=== PATIENT | male | born 1980 | race Two or more races ===

== ENCOUNTER 2016-04-02 16:37 | Inpatient (IN) | payer MEDICAID ==
[~2016-04-02] VITALS: Ht 175.3 cm; Wt 71.1 kg
[~2016-04-02 16:37] MED LIST: COLC0.6T56 GT; FERR18TA2 PEG; GABA-494 PO; IBUP800T24 PEG; METO25TA5 PEG; PANT40TA2 PEG; POLY335015 PEG
[2016-04-02] MEDS ORDERED: SODIUM CHLORIDE 0.9% 1,000 ML IVB ONE (17:47)
[2016-04-02] MEDS ORDERED: cefTRIAXone 1GM/50ML D5W 50 ML IV ONE (18:00)
[2016-04-02 18:08] LABS: Basophils # (auto) 0 uL; Basophils % (auto) 0.2 % (0.0-2.0); DEFINITIVE VIEW TRANSMISSION; Eosinophils # (auto) 0 uL; Hematocrit 39.1 % (41.0-53.0); Hemoglobin 12.1 g/dL (13.5-17.5); Lymphocytes # (auto) 1.8 uL; Lymphocytes % (auto) 17.5 % (10.0-50.0); Mean Corpuscular Hgb Conc. 31.1 g/dL (32.0-36.0); Mean Corpuscular Volume 80.3 fL (80.0-100.0); Mean Platelet Volume 8.8 fL (7.4-10.4); Monocytes # (auto) 0.7 uL; Monocytes % (auto) 6.8 % (0.0-12.0); Neutrophils # (auto) 7.7 uL; Neutrophils % (auto) 75.5 % (37.0-80.0); Platelet Count (auto) 219 10^3/uL (140-450); Red Cell Distribution Width 16.6 % (11.6-16.0); White Blood Cell 10.2 10^3/uL (4.4-10.8)
[2016-04-02 18:19] LABS: Albumin 2.8 g/dL (3.4-5.0); BUN/Creatinine Ratio 20.5; Calcium 8.4 mg/dL (8.5-10.1); Magnesium 2.1 mg/dL (1.6-2.6); Potassium 3.5 mmol/L (3.5-5.1)
[2016-04-02 18:21] LABS: Total Protein 7.9 g/dL (6.4-8.2)
[2016-04-02 18:22] LABS: Partial Thromboplastin Time 31.6 sec (22.64-33.71)
[2016-04-02 18:25] LABS: INR 1.3 (0.9-1.15); Prothrombin Time 13.4 sec (9.37-12.3)
[2016-04-02] MEDS ORDERED: AZITHROMYCIN 500MG/D5W 250ML 250 ML IV ONE (20:15)
[2016-04-02 21:16] LABS: Urine Bilirubin Negative (Negative); Urine Blood Negative /uL (Negative); Urine Color Yellow (Yellow); Urine Glucose Normal (Normal); Urine Ketone TRACE (Negative); Urine Mucus FEW (None Seen); Urine RBC 4 /hpf (0 - 3); Urine Squamous Epithelial Cell FEW /hpf (<5); Urine Urobilinogen Normal (Negative); Urine pH 6.5 (5.0-8.0)
[2016-04-02 21:26] LABS: Urine Nitrite POSITIVE (Negative)
[2016-04-02] MEDS ORDERED: SODIUM CHLORIDE 0.9% 1,000 ML IV ONE ×2 (22:45→23:00)
[2016-04-02] MEDS ORDERED: ALPRAZolam 0.5 MG TAB PO ONE (22:45)
[2016-04-02] MEDS ORDERED: SODIUM CHLORIDE 0.9% 1,000 ML IV SCH (22:47)
[2016-04-02] MEDS ORDERED: LACTULOSE 20Gm/30ML SOLN PO PRN (23:00)
[2016-04-02 23:34] VITALS: BP 104/69
[2016-04-03] VITALS (12 sets, daily range): BP systolic 67–106; BP diastolic 36–68
[2016-04-03] MEDS: SODIUM CHLORIDE 0.9% 1,000 ML IV ONE ×2 (01:47→01:53)
[2016-04-03] MEDS: ALBUTEROL SULF 2.5 MG/0.5ML(0.5%) NEB SOLN NEB SCH ×6 (02:15→22:47)
[2016-04-03] MEDS: IPRATROPIUM BROM 0.5 MG/2.5ML INH SOL NEB SCH ×6 (02:15→22:47)
[2016-04-03] MEDS ORDERED: CHL4PW GT (03:19)
[2016-04-03] MEDS ORDERED: FERR220E2 PO (03:19)
[2016-04-03] MEDS ORDERED: ALBUMIN 5% 250 ML IV ONE ×5 (04:27→07:45)
[2016-04-03 06:36] LABS: Basophils # (auto) 0 uL; Basophils % (auto) 0.2 % (0.0-2.0); DEFINITIVE VIEW TRANSMISSION; Eosinophils # (auto) 0 uL; Eosinophils % (auto) 0.1 % (0.0-7.0); Hematocrit 31.2 % (41.0-53.0); Hemoglobin 9.8 g/dL (13.5-17.5); Lymphocytes # (auto) 0.8 uL; Lymphocytes % (auto) 16.3 % (10.0-50.0); Mean Corpuscular Hemoglobin 25.7 pg (28.0-32.0); Mean Corpuscular Hgb Conc. 31.5 g/dL (32.0-36.0); Mean Corpuscular Volume 81.6 fL (80.0-100.0); Mean Platelet Volume 8.2 fL (7.4-10.4); Monocytes # (auto) 0.4 uL; Monocytes % (auto) 7.2 % (0.0-12.0); Neutrophils # (auto) 3.9 uL; Neutrophils % (auto) 76.2 % (37.0-80.0); Platelet Count (auto) 148 10^3/uL (140-450); Red Cell Distribution Width 16.7 % (11.6-16.0); White Blood Cell 5.1 10^3/uL (4.4-10.8)
[2016-04-03 06:56] LABS: Albumin 2.9 g/dL (3.4-5.0); BUN/Creatinine Ratio 26.1; Bilirubin, Total 0.5 mg/dL (0.2-1.0); Potassium 3.2 mmol/L (3.5-5.1); Total Protein 6.7 g/dL (6.4-8.2)
[2016-04-03] MEDS: SODIUM CHLORIDE 0.9% 1,000 ML IV SCH ×3 (07:45→21:25)
[2016-04-03] MEDS ORDERED: IOHEXOL 350 MG/ML 100ML IJ ONE (08:20)
[2016-04-03] MEDS: FERROUS SULFATE 325 MG TAB PO SCH ×3 (08:23→17:04)
[2016-04-03] MEDS ORDERED: ENOXAPARIN SOD 30 MG/0.3 ML SYRINGE SC SCH (10:00)
[2016-04-03] MEDS: ENOXAPARIN SOD 40 MG/0.4 ML SYRINGE SC SCH (10:00)
[2016-04-03] MEDS: PANTOPRAZOLE SODIUM 40 MG/10 ML VIAL IV SCH (10:10)
[2016-04-03] MEDS: CHOLESTYRAMINE 4 GM POWDER PO SCH (11:00)
[2016-04-03] MEDS: PIPERACILLIN-TAZO 4.5GM 100 ML IV SCH (16:59)
[2016-04-03] MEDS: PRO-STAT 64 30ML PO SCH (18:00)
[2016-04-03] MEDS: BUDESONIDE (INHALATION) 0.5 MG/2 ML NEB NEB SCH (20:24)
[2016-04-03] MEDS ORDERED: cefTRIAXone 1GM/50ML D5W 50 ML IV SCH (21:00)
[2016-04-03] MEDS: AZITHROMYCIN 500MG/D5W 250ML 250 ML IV SCH (21:23)
[2016-04-03] MEDS: NUTREN GT SCH (22:49)
[2016-04-03] MEDS ORDERED: TEMAZEPAM 15 MG CAP PO ONE (23:45)
[2016-04-04] MEDS: ALBUTEROL SULF 2.5 MG/0.5ML(0.5%) NEB SOLN NEB SCH ×6 (01:54→22:18)
[2016-04-04] MEDS: IPRATROPIUM BROM 0.5 MG/2.5ML INH SOL NEB SCH ×6 (01:54→22:18)
[2016-04-04] MEDS: PIPERACILLIN-TAZO 4.5GM 100 ML IV SCH ×3 (02:06→17:36)
[2016-04-04 05:00] VITALS: BP 85/44
[2016-04-04] MEDS: SODIUM CHLORIDE 0.9% 1,000 ML IV SCH ×3 (06:00→17:12)
[2016-04-04 06:28] LABS: Basophils # (auto) 0 uL; Basophils % (auto) 0.3 % (0.0-2.0); DEFINITIVE VIEW TRANSMISSION; Eosinophils # (auto) 0 uL; Eosinophils % (auto) 0.2 % (0.0-7.0); Hematocrit 31.6 % (41.0-53.0); Hemoglobin 9.9 g/dL (13.5-17.5); Lymphocytes # (auto) 1.3 uL; Mean Corpuscular Hemoglobin 25.3 pg (28.0-32.0); Mean Corpuscular Hgb Conc. 31.4 g/dL (32.0-36.0); Mean Corpuscular Volume 80.6 fL (80.0-100.0); Mean Platelet Volume 9.1 fL (7.4-10.4); Monocytes # (auto) 0.4 uL; Monocytes % (auto) 9.5 % (0.0-12.0); Neutrophils # (auto) 2.7 uL; Platelet Count (auto) 163 10^3/uL (140-450); Red Cell Distribution Width 15.7 % (11.6-16.0); White Blood Cell 4.5 10^3/uL (4.4-10.8)
[2016-04-04 06:40] LABS: Albumin 2.9 g/dL (3.4-5.0); BUN/Creatinine Ratio 7.4; Calcium 8.2 mg/dL (8.5-10.1)
[2016-04-04 06:42] LABS: Bilirubin, Total 0.5 mg/dL (0.2-1.0); Total Protein 6.6 g/dL (6.4-8.2)
[2016-04-04 06:49] LABS: Potassium 2.9 mmol/L (3.5-5.1)
[2016-04-04] MEDS ORDERED: POTASSIUM CHL 10% (20 MEQ/15ML) ORAL SOLN GT ONE (07:30)
[2016-04-04 08:00] VITALS: BP 91/61
[2016-04-04] MEDS: BUDESONIDE (INHALATION) 0.5 MG/2 ML NEB NEB SCH ×2 (09:32→18:31)
[2016-04-04] MEDS: PRO-STAT 64 30ML PO SCH ×3 (09:49→17:48)
[2016-04-04] MEDS: FERROUS SULFATE 325 MG TAB PO SCH ×3 (09:49→17:48)
[2016-04-04] MEDS: NUTREN GT SCH (10:07)
[2016-04-04] MEDS: ENOXAPARIN SOD 40 MG/0.4 ML SYRINGE SC SCH (10:48)
[2016-04-04] MEDS: PANTOPRAZOLE SODIUM 40 MG/10 ML VIAL IV SCH (10:48)
[2016-04-04 12:00] VITALS: BP 74/42
[2016-04-04] MEDS: CHOLESTYRAMINE 4 GM POWDER PO SCH (13:08)
[2016-04-04] MEDS: NUTREN PO SCH ×3 (16:00→22:00)
[2016-04-04 17:06] VITALS: BP 70/42
[2016-04-04 19:30] VITALS: BP 84/49
[2016-04-04] MEDS: AZITHROMYCIN 500MG/D5W 250ML 250 ML IV SCH (20:35)
[2016-04-04 22:00] VITALS: BP 83/49
[2016-04-04] MEDS ORDERED: TEMAZEPAM 15 MG CAP PO ONE (22:00)
[2016-04-05] VITALS (7 sets, daily range): BP systolic 73–118; BP diastolic 40–80
[2016-04-05] MEDS: SODIUM CHLORIDE 0.9% 1,000 ML IV SCH ×4 (00:27→19:45)
[2016-04-05] MEDS: PIPERACILLIN-TAZO 4.5GM 100 ML IV SCH ×3 (00:27→18:11)
[2016-04-05] MEDS: IPRATROPIUM BROM 0.5 MG/2.5ML INH SOL NEB SCH ×6 (02:51→22:00)
[2016-04-05] MEDS: ALBUTEROL SULF 2.5 MG/0.5ML(0.5%) NEB SOLN NEB SCH ×6 (02:51→22:00)
[2016-04-05] MEDS: NUTREN PO SCH ×4 (05:51→22:00)
[2016-04-05 06:31] LABS: Calcium 8.3 mg/dL (8.5-10.1); Potassium 3.6 mmol/L (3.5-5.1)
[2016-04-05] MEDS: PRO-STAT 64 30ML PO SCH ×3 (08:00→18:12)
[2016-04-05] MEDS: FERROUS SULFATE 325 MG TAB PO SCH ×3 (09:22→18:11)
[2016-04-05] MEDS: ENOXAPARIN SOD 40 MG/0.4 ML SYRINGE SC SCH (09:49)
[2016-04-05] MEDS: PANTOPRAZOLE SODIUM 40 MG/10 ML VIAL IV SCH (09:50)
[2016-04-05] MEDS ORDERED: LINEZOLID 600MG/300ML 300 ML IV SCH (10:00)
[2016-04-05] MEDS: BUDESONIDE (INHALATION) 0.5 MG/2 ML NEB NEB SCH ×2 (12:08→18:44)
[2016-04-05] MEDS: CHOLESTYRAMINE 4 GM POWDER PO SCH (13:50)
[2016-04-05] MEDS ORDERED: HYDROmorphone HCL 2 MG/ML VL ONE (14:11)
[2016-04-05] MEDS ORDERED: GASTROGRAFIN 30 ML SOL ONE (14:23)
[2016-04-05] MEDS ORDERED: HYDROmorphone HCL 2 MG/ML VL IV ONE (14:30)
[2016-04-05] MEDS: LINEZOLID 600MG/300ML 300 ML IV SCH (23:19)
[2016-04-06] VITALS (7 sets, daily range): BP systolic 77–93; BP diastolic 48–64
[2016-04-06] MEDS: SODIUM CHLORIDE 0.9% 1,000 ML IV SCH ×4 (02:25→22:25)
[2016-04-06] MEDS: IPRATROPIUM BROM 0.5 MG/2.5ML INH SOL NEB SCH ×5 (02:35→18:20)
[2016-04-06] MEDS: ALBUTEROL SULF 2.5 MG/0.5ML(0.5%) NEB SOLN NEB SCH ×5 (02:35→18:20)
[2016-04-06] MEDS: BUDESONIDE (INHALATION) 0.5 MG/2 ML NEB NEB SCH ×2 (02:50→11:23)
[2016-04-06] MEDS: PIPERACILLIN-TAZO 4.5GM 100 ML IV SCH ×3 (04:58→20:46)
[2016-04-06] MEDS: NUTREN PO SCH ×4 (06:00→22:00)
[2016-04-06] MEDS: PRO-STAT 64 30ML PO SCH ×3 (08:58→18:31)
[2016-04-06] MEDS: FERROUS SULFATE 325 MG TAB PO SCH ×3 (08:58→18:41)
[2016-04-06] MEDS: PANTOPRAZOLE SODIUM 40 MG/10 ML VIAL IV SCH (10:04)
[2016-04-06] MEDS: ENOXAPARIN SOD 40 MG/0.4 ML SYRINGE SC SCH (10:04)
[2016-04-06] MEDS: CHOLESTYRAMINE 4 GM POWDER PO SCH (11:20)
[2016-04-06] MEDS: LINEZOLID 600MG/300ML 300 ML IV SCH (12:04)
[2016-04-06] MEDS: ALPRAZolam 0.25 MG TAB PO PRN (18:41)
[2016-04-06] MEDS: ASCORBIC ACID 500 MG TAB PO SCH (21:30)
[2016-04-07] MEDS: LINEZOLID 600MG/300ML 300 ML IV SCH ×3 (00:47→23:40)
[2016-04-07] MEDS: ALPRAZolam 0.25 MG TAB PO PRN ×3 (02:44→22:42)
[2016-04-07] MEDS: ALBUTEROL SULF 2.5 MG/0.5ML(0.5%) NEB SOLN NEB SCH ×6 (02:50→22:00)
[2016-04-07] MEDS: IPRATROPIUM BROM 0.5 MG/2.5ML INH SOL NEB SCH ×6 (02:50→22:00)
[2016-04-07] MEDS: PIPERACILLIN-TAZO 4.5GM 100 ML IV SCH ×3 (04:21→22:07)
[2016-04-07] MEDS: SODIUM CHLORIDE 0.9% 1,000 ML IV SCH ×3 (05:05→17:48)
[2016-04-07 05:46] VITALS: BP 109/75
[2016-04-07] MEDS: NUTREN PO SCH ×4 (06:00→22:07)
[2016-04-07] MEDS: PRO-STAT 64 30ML PO SCH ×3 (08:00→16:57)
[2016-04-07 09:00] VITALS: BP 78/48
[2016-04-07] MEDS: ASCORBIC ACID 500 MG TAB PO SCH ×2 (09:53→22:07)
[2016-04-07] MEDS: CHOLESTYRAMINE 4 GM POWDER PO SCH (09:53)
[2016-04-07] MEDS: ENOXAPARIN SOD 40 MG/0.4 ML SYRINGE SC SCH (09:53)
[2016-04-07] MEDS: MULTIPLE VITAMINS W/ MINERALS TAB PO SCH (09:53)
[2016-04-07] MEDS: PANTOPRAZOLE SODIUM 40 MG/10 ML VIAL IV SCH (09:53)
[2016-04-07] MEDS: FERROUS SULFATE 325 MG TAB PO SCH ×3 (10:00→17:39)
[2016-04-07] MEDS: BUDESONIDE (INHALATION) 0.5 MG/2 ML NEB NEB SCH ×2 (11:00→22:00)
[2016-04-07 13:00] VITALS: BP 74/39
[2016-04-07 17:00] VITALS: BP 103/68
[2016-04-07] MEDS ORDERED: MIDODRINE HCL 10 MG TAB PO SCH ×2 (17:00)
[2016-04-07 22:00] VITALS: BP 144/107
[2016-04-07] MEDS ORDERED: ACETAMINOPHEN 500 MG TAB PO PRN (22:00)
[2016-04-08] MEDS: ALBUTEROL SULF 2.5 MG/0.5ML(0.5%) NEB SOLN NEB SCH ×4 (02:00→14:23)
[2016-04-08] MEDS: IPRATROPIUM BROM 0.5 MG/2.5ML INH SOL NEB SCH ×4 (02:00→14:24)
[2016-04-08] MEDS: NUTREN PO SCH ×2 (04:49→12:22)
[2016-04-08] MEDS: PIPERACILLIN-TAZO 4.5GM 100 ML IV SCH ×2 (04:49→14:00)
[2016-04-08] MEDS: SODIUM CHLORIDE 0.9% 1,000 ML IV SCH ×3 (05:00→14:25)
[2016-04-08 05:34] VITALS: BP 112/77
[2016-04-08] MEDS: BUDESONIDE (INHALATION) 0.5 MG/2 ML NEB NEB SCH (05:42)
[2016-04-08 07:01] LABS: Basophils # (auto) 0 uL; Basophils % (auto) 0.2 % (0.0-2.0); DEFINITIVE VIEW TRANSMISSION; Eosinophils # (auto) 0.1 uL; Eosinophils % (auto) 1.2 % (0.0-7.0); Hematocrit 44.6 % (41.0-53.0); Hemoglobin 13.5 g/dL (13.5-17.5); Lymphocytes # (auto) 1.9 uL; Mean Corpuscular Hgb Conc. 30.3 g/dL (32.0-36.0); Mean Corpuscular Volume 82.4 fL (80.0-100.0); Mean Platelet Volume 7.8 fL (7.4-10.4); Monocytes # (auto) 0.4 uL; Monocytes % (auto) 4.6 % (0.0-12.0); Neutrophils # (auto) 6.5 uL; Platelet Count (auto) 369 10^3/uL (140-450); Red Cell Distribution Width 16.5 % (11.6-16.0); White Blood Cell 8.9 10^3/uL (4.4-10.8)
[2016-04-08 07:37] LABS: BUN/Creatinine Ratio 15.8; Calcium 8.6 mg/dL (8.5-10.1); Potassium 3.4 mmol/L (3.5-5.1)
[2016-04-08 07:40] LABS: Bilirubin, Total 0.3 mg/dL (0.2-1.0); Total Protein 8.1 g/dL (6.4-8.2)
[2016-04-08 08:00] VITALS: BP 119/80
[2016-04-08 08:30] VITALS: BP 119/80
[2016-04-08] MEDS: ASCORBIC ACID 500 MG TAB PO SCH (09:01)
[2016-04-08] MEDS: PANTOPRAZOLE SODIUM 40 MG/10 ML VIAL IV SCH (09:01)
[2016-04-08] MEDS: PRO-STAT 64 30ML PO SCH ×2 (09:01→12:22)
[2016-04-08] MEDS: FERROUS SULFATE 325 MG TAB PO SCH ×2 (09:01→11:16)
[2016-04-08] MEDS: MULTIPLE VITAMINS W/ MINERALS TAB PO SCH (09:02)
[2016-04-08] MEDS: ENOXAPARIN SOD 40 MG/0.4 ML SYRINGE SC SCH (09:14)
[2016-04-08] MEDS ORDERED: MIDODRINE HCL 10 MG TAB PO SCH (10:00)
[2016-04-08] MEDS: CHOLESTYRAMINE 4 GM POWDER PO SCH (11:00)
[2016-04-08] MEDS: LINEZOLID 600MG/300ML 300 ML IV SCH (12:16)
[2016-04-08 13:00] VITALS: BP 103/71
== END 2016-04-08 18:06 | disposition home or self-care (01) | DRG 222 ==
LOC: ER 16:44 → TELE 16:45 → TELE-WESTW 23:38 → WEST WING 04-07 17:27
PROVIDERS: ADMIT Family Medicine; ATTEND Internal Medicine
PROC: 0DH63UZ Insertion of Feeding Device into Stomach, Percutaneous Approach (ICD-10-PCS; principal; 2016-04-05)
PROC: 0DP64UZ Removal of Feeding Device from Stomach, Percutaneous Endoscopic Approach (ICD-10-PCS; 2016-04-05)
DX: K94.23 Gastrostomy malfunction (principal); G82.50 Quadriplegia, unspecified; E43 Unspecified severe protein-calorie malnutrition; J18.9 Pneumonia, unspecified organism; E86.0 Dehydration; N39.0 Urinary tract infection, site not specified; Z74.01 Bed confinement status; Z98.890 Other specified postprocedural states; Z68.23 Body mass index [BMI] 23.0-23.9, adult
CPT/HCPCS: 36415; 51702; 71010; 71275; 74020; 80048; 80053; 80061; 81001; 83605; 83735; 85025; 85610; 85730; 87040; 87070; 87077; 87086; 87088; 87186; 87205; 94640; 94761; C9113; J0696; J2543

== ENCOUNTER 2016-05-18 16:52 | Inpatient (IN) | payer MEDICARE, MEDICAID ==
[~2016-05-18] VITALS: Ht 177.8 cm; Wt 66.0 kg
[~2016-05-18 16:52] MED LIST changes: +CHL4PW GT; -COLC0.6T56 GT; -FERR18TA2 PEG; +FERR220E2 PO; -GABA-494 PO; -IBUP800T24 PEG; -METO25TA5 PEG; -PANT40TA2 PEG
[2016-05-18] MEDS ORDERED: methylPREDNISolone SOD SUCC 125 MG/2 ML VL IV ONE (17:15)
[2016-05-18] MEDS ORDERED: SODIUM CHLORIDE 0.9% 500 ML IV ONE (17:15)
[2016-05-18] MEDS ORDERED: LEVOFLOXACIN 500MG 100 ML IV ONE (17:15)
[2016-05-18 17:57] LABS: Basophils # (auto) 0 uL; Basophils % (auto) 0.1 % (0.0-2.0); DEFINITIVE VIEW TRANSMISSION; Eosinophils # (auto) 0.2 uL; Eosinophils % (auto) 2.2 % (0.0-7.0); Hematocrit 29.9 % (41.0-53.0); Hemoglobin 9.5 g/dL (13.5-17.5); Lymphocytes # (auto) 2.7 uL; Lymphocytes % (auto) 36.8 % (10.0-50.0); Mean Corpuscular Hemoglobin 25.6 pg (28.0-32.0); Mean Corpuscular Hgb Conc. 31.7 g/dL (32.0-36.0); Mean Corpuscular Volume 80.7 fL (80.0-100.0); Mean Platelet Volume 7.8 fL (7.4-10.4); Monocytes # (auto) 0.4 uL; Monocytes % (auto) 5.8 % (0.0-12.0); Neutrophils # (auto) 4.1 uL; Neutrophils % (auto) 55.1 % (37.0-80.0); Platelet Count (auto) 260 10^3/uL (140-450); Red Cell Distribution Width 16.2 % (11.6-16.0); White Blood Cell 7.4 10^3/uL (4.4-10.8)
[2016-05-18 18:04] LABS: Albumin 2.6 g/dL (3.4-5.0); Anion Gap 9 (5-15); Aspartate Aminotransferase 12 U/L (15-37); Blood Urea Nitrogen 12 mg/dL (7-18); Calcium 7.7 mg/dL (8.5-10.1); Carbon Dioxide 25 mmol/L (21-32); Chloride 104 mmol/L (98-107); GFR African American 439 mL/min; GFR Non-African American 363 mL/min; Glucose 128 mg/dL (74-106); Magnesium 2.3 mg/dL (1.6-2.6); Potassium 3.4 mmol/L (3.5-5.1); Sodium 138 mmol/L (136-145)
[2016-05-18 18:09] LABS: Alkaline Phosphatase 84 U/L (45-117); Bilirubin, Total 0.2 mg/dL (0.2-1.0); Total Protein 7.5 g/dL (6.4-8.2)
[2016-05-18 18:12] LABS: B-Type Natriuretic Peptide 8.32 pg/mL (0-100)
[2016-05-18 18:18] LABS: Temperature: 23.5 C (20.0-25.0)
[2016-05-18] MEDS ORDERED: SODIUM CHLORIDE 0.9% 1,000 ML IV SCH (18:18)
[2016-05-18] MEDS ORDERED: LACTULOSE 20Gm/30ML SOLN PO PRN (18:30)
[2016-05-18] MEDS ORDERED: ALBUTEROL SULF 2.5 MG/0.5ML(0.5%) NEB SOLN NEB PRN (18:30)
[2016-05-18] MEDS ORDERED: LORazepam 2MG/ML-1ML VIAL IV PRN (18:30)
[2016-05-18] MEDS ORDERED: NITROGLYCERIN 0.4 MG SL TAB SL PRN (18:30)
[2016-05-18] MEDS ORDERED: PROMETHAZINE HCL 25 MG/ML 1ML IV PRN (18:30)
[2016-05-18] MEDS ORDERED: OSELTAMIVIR 75 MG CAP PO ONE (18:30)
[2016-05-18] MEDS ORDERED: MORPHINE SULF INJ 2 MG/ML SYRINGE 1ML IV PRN ×2 (18:30)
[2016-05-18] MEDS ORDERED: SODIUM CHLORIDE 0.9% 1,000 ML IV ONE (18:30)
[2016-05-18] MEDS ORDERED: PIPERACILLIN-TAZOB 3.375GM 100 ML IV ONE (18:45)
[2016-05-18] MEDS ORDERED: AZITHROMYCIN 500MG/D5W 250ML 250 ML IV ONE (18:45)
[2016-05-18] MEDS: ENOXAPARIN SOD 40 MG/0.4 ML SYRINGE SC SCH (18:52)
[2016-05-18] MEDS ORDERED: CLINDAMYCIN 600MG IV 50 ML IV SCH (22:00)
[2016-05-18] MEDS ORDERED: PATIENTS OWN MEDICATION (linezolid 600 MG) IV SCH (22:00)
[2016-05-18] MEDS ORDERED: AZTREONAM 1GM INJ 2 GM in D5W 5% 100 ML IV SCH (23:00)
[2016-05-18] MEDS: LINEZOLID 600MG/300ML 300 ML IV SCH (23:00)
[2016-05-19] VITALS (40 sets, daily range): BP systolic 67–144; BP diastolic 35–99
[2016-05-19] MEDS ORDERED: PIPERACILLIN-TAZOB 3.375GM 100 ML IV SCH
[2016-05-19 04:12] LABS: Basophils # (auto) 0 uL; Basophils % (auto) 0.1 % (0.0-2.0); DEFINITIVE VIEW TRANSMISSION; Eosinophils # (auto) 0 uL; Hematocrit 28.3 % (41.0-53.0); Hemoglobin 9.1 g/dL (13.5-17.5); Lymphocytes # (auto) 1.7 uL; Lymphocytes % (auto) 30.6 % (10.0-50.0); Mean Corpuscular Hemoglobin 26.2 pg (28.0-32.0); Mean Corpuscular Hgb Conc. 32.4 g/dL (32.0-36.0); Mean Corpuscular Volume 80.9 fL (80.0-100.0); Mean Platelet Volume 7.7 fL (7.4-10.4); Monocytes # (auto) 0.4 uL; Monocytes % (auto) 7.5 % (0.0-12.0); Neutrophils # (auto) 3.4 uL; Neutrophils % (auto) 61.8 % (37.0-80.0); Platelet Count (auto) 280 10^3/uL (140-450); Red Cell Distribution Width 16.1 % (11.6-16.0); White Blood Cell 5.6 10^3/uL (4.4-10.8)
[2016-05-19 04:37] LABS: Albumin 2.5 g/dL (3.4-5.0); BUN/Creatinine Ratio 16.7; Bilirubin, Total 0.2 mg/dL (0.2-1.0); Calcium 7.9 mg/dL (8.5-10.1); Potassium 3.5 mmol/L (3.5-5.1); Total Protein 7.2 g/dL (6.4-8.2)
[2016-05-19] MEDS: ALBUTEROL SULF 2.5 MG/0.5ML(0.5%) NEB SOLN NEB SCH ×4 (06:00→18:20)
[2016-05-19] MEDS: IPRATROPIUM BROM 0.5 MG/2.5ML INH SOL NEB SCH ×4 (06:00→18:20)
[2016-05-19] MEDS: LINEZOLID 600MG/300ML 300 ML IV SCH ×2 (09:29→22:00)
[2016-05-19] MEDS ORDERED: LEVOFLOXACIN 500MG 100 ML IV SCH (10:00)
[2016-05-19] MEDS ORDERED: AZITHROMYCIN 500MG/D5W 250ML 250 ML IV SCH (10:00)
[2016-05-19] MEDS: ENOXAPARIN SOD 40 MG/0.4 ML SYRINGE SC SCH (11:00)
[2016-05-19] MEDS: OSELTAMIVIR 75 MG CAP PO SCH ×2 (11:00→22:06)
[2016-05-19] MEDS: NUTREN PO SCH ×2 (13:14→22:06)
[2016-05-19] MEDS: AZTREONAM 1GM INJ 2 GM in D5W 5% 100 ML IV SCH ×2 (13:14→21:23)
[2016-05-19] MEDS: SODIUM CHLORIDE 0.9% 1,000 ML IV SCH ×2 (15:00→18:18)
[2016-05-19] MEDS: NOREPINEPHRINE BITARTRATE 250 ML IV SCH (18:00)
[2016-05-20] VITALS (96 sets, daily range): BP systolic 75–133; BP diastolic 36–97
[2016-05-20] MEDS: ALBUTEROL SULF 2.5 MG/0.5ML(0.5%) NEB SOLN NEB SCH ×4 (00:19→18:40)
[2016-05-20] MEDS: IPRATROPIUM BROM 0.5 MG/2.5ML INH SOL NEB SCH ×4 (00:19→18:40)
[2016-05-20] MEDS: SODIUM CHLORIDE 0.9% 1,000 ML IV SCH ×4 (00:58→17:10)
[2016-05-20 04:16] LABS: Basophils # (auto) 0 uL; Basophils % (auto) 0.3 % (0.0-2.0); DEFINITIVE VIEW TRANSMISSION; Eosinophils # (auto) 0.1 uL; Hematocrit 30.9 % (41.0-53.0); Hemoglobin 9.9 g/dL (13.5-17.5); Lymphocytes # (auto) 2.1 uL; Lymphocytes % (auto) 35.8 % (10.0-50.0); Mean Corpuscular Hemoglobin 25.7 pg (28.0-32.0); Mean Corpuscular Hgb Conc. 32.2 g/dL (32.0-36.0); Mean Corpuscular Volume 80.1 fL (80.0-100.0); Mean Platelet Volume 7.2 fL (7.4-10.4); Monocytes # (auto) 0.5 uL; Monocytes % (auto) 7.9 % (0.0-12.0); Neutrophils # (auto) 3.1 uL; Platelet Count (auto) 317 10^3/uL (140-450); Red Cell Distribution Width 16.3 % (11.6-16.0); White Blood Cell 5.7 10^3/uL (4.4-10.8)
[2016-05-20 04:45] LABS: BUN/Creatinine Ratio 10.3; Calcium 7.9 mg/dL (8.5-10.1); Potassium 3.5 mmol/L (3.5-5.1)
[2016-05-20] MEDS: AZTREONAM 1GM INJ 2 GM in D5W 5% 100 ML IV SCH ×3 (05:15→21:08)
[2016-05-20] MEDS: NUTREN PO SCH ×3 (06:00→22:00)
[2016-05-20] MEDS: ENOXAPARIN SOD 40 MG/0.4 ML SYRINGE SC SCH (10:22)
[2016-05-20] MEDS: LINEZOLID 600MG/300ML 300 ML IV SCH ×2 (10:22→22:08)
[2016-05-20] MEDS: OSELTAMIVIR 75 MG CAP PO SCH (10:22)
[2016-05-20] MEDS: NOREPINEPHRINE BITARTRATE 250 ML IV SCH (17:19)
[2016-05-21] VITALS (96 sets, daily range): BP systolic 67–172; BP diastolic 40–119
[2016-05-21] MEDS: ALBUTEROL SULF 2.5 MG/0.5ML(0.5%) NEB SOLN NEB SCH ×4 (00:18→20:00)
[2016-05-21] MEDS: IPRATROPIUM BROM 0.5 MG/2.5ML INH SOL NEB SCH ×5 (00:18→20:00)
[2016-05-21] MEDS: SODIUM CHLORIDE 0.9% 1,000 ML IV SCH ×3 (03:30→16:58)
[2016-05-21 04:14] LABS: Basophils # (auto) 0 uL; Basophils % (auto) 0.3 % (0.0-2.0); DEFINITIVE VIEW TRANSMISSION; Eosinophils # (auto) 0.2 uL; Eosinophils % (auto) 3.4 % (0.0-7.0); Hemoglobin 10.7 g/dL (13.5-17.5); Lymphocytes # (auto) 2.5 uL; Lymphocytes % (auto) 33.6 % (10.0-50.0); Mean Corpuscular Hgb Conc. 32.3 g/dL (32.0-36.0); Mean Corpuscular Volume 80.6 fL (80.0-100.0); Mean Platelet Volume 7.4 fL (7.4-10.4); Monocytes # (auto) 0.6 uL; Monocytes % (auto) 7.5 % (0.0-12.0); Neutrophils # (auto) 4.1 uL; Neutrophils % (auto) 55.2 % (37.0-80.0); Platelet Count (auto) 312 10^3/uL (140-450); Red Cell Distribution Width 16.3 % (11.6-16.0); White Blood Cell 7.4 10^3/uL (4.4-10.8)
[2016-05-21 04:21] LABS: Albumin 2.8 g/dL (3.4-5.0); Potassium 3.6 mmol/L (3.5-5.1)
[2016-05-21 04:26] LABS: Bilirubin, Total 0.1 mg/dL (0.2-1.0); Total Protein 7.8 g/dL (6.4-8.2)
[2016-05-21] MEDS: AZTREONAM 1GM INJ 2 GM in D5W 5% 100 ML IV SCH ×3 (05:13→21:06)
[2016-05-21] MEDS: NUTREN PO SCH ×3 (06:00→22:00)
[2016-05-21] MEDS: LINEZOLID 600MG/300ML 300 ML IV SCH ×2 (09:48→21:31)
[2016-05-21] MEDS: ENOXAPARIN SOD 40 MG/0.4 ML SYRINGE SC SCH (09:48)
[2016-05-21] MEDS: ACETYLCYSTEINE 20%(200MG/ML) SOL 4ML NEB SCH ×2 (13:54→20:00)
[2016-05-21] MEDS: MIDODRINE HCL 10 MG TAB PO SCH ×2 (15:04→21:32)
[2016-05-21] MEDS ORDERED: AMIODARONE HCL (50 MG/ ML) 3 ML VIAL IV ONE (17:17)
[2016-05-21] MEDS: NOREPINEPHRINE BITARTRATE 250 ML IV SCH (17:45)
[2016-05-21] MEDS: BUDESONIDE (INHALATION) 0.5 MG/2 ML NEB NEB SCH (20:00)
[2016-05-22] VITALS (96 sets, daily range): BP systolic 79–137; BP diastolic 44–91
[2016-05-22] MEDS: SODIUM CHLORIDE 0.9% 1,000 ML IV SCH ×4 (05:09→19:38)
[2016-05-22] MEDS: NUTREN PO SCH ×3 (06:00→21:27)
[2016-05-22] MEDS: IPRATROPIUM BROM 0.5 MG/2.5ML INH SOL NEB SCH ×5 (06:00→18:30)
[2016-05-22] MEDS: MIDODRINE HCL 10 MG TAB PO SCH ×3 (06:00→21:26)
[2016-05-22] MEDS: AZTREONAM 1GM INJ 2 GM in D5W 5% 100 ML IV SCH ×4 (06:58→21:25)
[2016-05-22] MEDS: ALBUTEROL SULF 2.5 MG/0.5ML(0.5%) NEB SOLN NEB SCH ×3 (07:36→18:30)
[2016-05-22] MEDS: BUDESONIDE (INHALATION) 0.5 MG/2 ML NEB NEB SCH ×2 (07:38→18:30)
[2016-05-22] MEDS: ACETYLCYSTEINE 20%(200MG/ML) SOL 4ML NEB SCH ×3 (07:38→15:06)
[2016-05-22] MEDS: methylPREDNISolone SOD SUCC 40 MG/ML VL IV SCH (10:27)
[2016-05-22] MEDS: LINEZOLID 600MG/300ML 300 ML IV SCH ×2 (10:27→21:24)
[2016-05-22] MEDS: ENOXAPARIN SOD 40 MG/0.4 ML SYRINGE SC SCH (10:28)
[2016-05-22] MEDS: ALBUMIN 25% 50 ML IV SCH ×2 (15:00→21:25)
[2016-05-22] MEDS: NOREPINEPHRINE BITARTRATE 250 ML IV SCH (17:45)
[2016-05-23] VITALS (92 sets, daily range): BP systolic 74–127; BP diastolic 35–86
[2016-05-23] MEDS: ALBUTEROL SULF 2.5 MG/0.5ML(0.5%) NEB SOLN NEB SCH ×4 (00:01→16:53)
[2016-05-23] MEDS: IPRATROPIUM BROM 0.5 MG/2.5ML INH SOL NEB SCH ×4 (00:01→16:53)
[2016-05-23 03:54] LABS: Basophils # (auto) 0 uL; Basophils % (auto) 0.3 % (0.0-2.0); DEFINITIVE VIEW TRANSMISSION; Eosinophils # (auto) 0 uL; Eosinophils % (auto) 0.4 % (0.0-7.0); Hematocrit 32.7 % (41.0-53.0); Hemoglobin 10.5 g/dL (13.5-17.5); Lymphocytes # (auto) 3.1 uL; Lymphocytes % (auto) 43.8 % (10.0-50.0); Mean Corpuscular Hgb Conc. 32.2 g/dL (32.0-36.0); Mean Corpuscular Volume 80.8 fL (80.0-100.0); Mean Platelet Volume 7.3 fL (7.4-10.4); Monocytes # (auto) 0.5 uL; Monocytes % (auto) 6.5 % (0.0-12.0); Neutrophils # (auto) 3.5 uL; Platelet Count (auto) 355 10^3/uL (140-450); Red Cell Distribution Width 16.5 % (11.6-16.0); White Blood Cell 7.1 10^3/uL (4.4-10.8)
[2016-05-23 04:26] LABS: Albumin 3.2 g/dL (3.4-5.0); BUN/Creatinine Ratio 22.7; Bilirubin, Total 0.1 mg/dL (0.2-1.0); Calcium 8.5 mg/dL (8.5-10.1); Potassium 3.5 mmol/L (3.5-5.1); Total Protein 7.8 g/dL (6.4-8.2)
[2016-05-23] MEDS: SODIUM CHLORIDE 0.9% 1,000 ML IV SCH ×4 (05:18→22:18)
[2016-05-23] MEDS: AZTREONAM 1GM INJ 2 GM in D5W 5% 100 ML IV SCH ×2 (05:18→12:47)
[2016-05-23] MEDS: MIDODRINE HCL 10 MG TAB PO SCH ×3 (05:27→22:20)
[2016-05-23] MEDS: ALBUMIN 25% 50 ML IV SCH ×3 (05:27→22:20)
[2016-05-23] MEDS: NUTREN PO SCH ×3 (05:27→22:20)
[2016-05-23] MEDS: NOREPINEPHRINE BITARTRATE 250 ML IV SCH (06:03)
[2016-05-23] MEDS: ACETYLCYSTEINE 20%(200MG/ML) SOL 4ML NEB SCH ×2 (06:44→16:52)
[2016-05-23] MEDS: ENOXAPARIN SOD 40 MG/0.4 ML SYRINGE SC SCH (09:47)
[2016-05-23] MEDS: methylPREDNISolone SOD SUCC 40 MG/ML VL IV SCH (09:47)
[2016-05-23] MEDS: LINEZOLID 600MG/300ML 300 ML IV SCH ×2 (09:47→22:19)
[2016-05-23] MEDS: BUDESONIDE (INHALATION) 0.5 MG/2 ML NEB NEB SCH (10:00)
[2016-05-23] MEDS ORDERED: cefTAZidime 1 GM in D5W 5% 50 ML IV ONE (15:30)
[2016-05-23] MEDS: cefTAZidime 1 GM in D5W 5% 50 ML IV SCH (22:20)
[2016-05-24] VITALS (80 sets, daily range): BP systolic 77–143; BP diastolic 37–97
[2016-05-24] MEDS: SODIUM CHLORIDE 0.9% 1,000 ML IV SCH ×3 (04:58→18:18)
[2016-05-24] MEDS: MIDODRINE HCL 10 MG TAB PO SCH ×3 (05:29→21:56)
[2016-05-24] MEDS: ALBUMIN 25% 50 ML IV SCH ×3 (05:30→21:55)
[2016-05-24] MEDS: cefTAZidime 1 GM in D5W 5% 50 ML IV SCH ×3 (05:30→21:56)
[2016-05-24] MEDS: IPRATROPIUM BROM 0.5 MG/2.5ML INH SOL NEB SCH ×4 (06:20→18:25)
[2016-05-24] MEDS: ACETYLCYSTEINE 20%(200MG/ML) SOL 4ML NEB SCH ×4 (06:20→18:10)
[2016-05-24] MEDS: ALBUTEROL SULF 2.5 MG/0.5ML(0.5%) NEB SOLN NEB SCH ×4 (06:26→18:25)
[2016-05-24] MEDS: NUTREN PO SCH ×3 (08:30→19:30)
[2016-05-24] MEDS: LINEZOLID 600MG/300ML 300 ML IV SCH ×2 (10:30→20:57)
[2016-05-24] MEDS: ENOXAPARIN SOD 40 MG/0.4 ML SYRINGE SC SCH (10:30)
[2016-05-24] MEDS: methylPREDNISolone SOD SUCC 40 MG/ML VL IV SCH (10:30)
[2016-05-24 10:40] LABS: Basophils # (auto) 0 uL; Basophils % (auto) 0.1 % (0.0-2.0); DEFINITIVE VIEW TRANSMISSION; Eosinophils # (auto) 0 uL; Eosinophils % (auto) 0.5 % (0.0-7.0); Hematocrit 31.7 % (41.0-53.0); Hemoglobin 10.2 g/dL (13.5-17.5); Lymphocytes # (auto) 2.8 uL; Mean Corpuscular Hemoglobin 25.9 pg (28.0-32.0); Mean Corpuscular Hgb Conc. 32.1 g/dL (32.0-36.0); Mean Corpuscular Volume 80.5 fL (80.0-100.0); Mean Platelet Volume 7.3 fL (7.4-10.4); Monocytes # (auto) 0.4 uL; Monocytes % (auto) 4.6 % (0.0-12.0); Neutrophils # (auto) 5.5 uL; Neutrophils % (auto) 62.8 % (37.0-80.0); Platelet Count (auto) 335 10^3/uL (140-450); Red Cell Distribution Width 16.8 % (11.6-16.0); White Blood Cell 8.8 10^3/uL (4.4-10.8)
[2016-05-24] MEDS: BUDESONIDE (INHALATION) 0.5 MG/2 ML NEB NEB SCH ×3 (10:50→18:10)
[2016-05-24 11:02] LABS: Albumin 3.5 g/dL (3.4-5.0); BUN/Creatinine Ratio 21.2; Calcium 8.2 mg/dL (8.5-10.1); Potassium 3.3 mmol/L (3.5-5.1)
[2016-05-24 11:08] LABS: Bilirubin, Total 0.1 mg/dL (0.2-1.0); Total Protein 7.4 g/dL (6.4-8.2)
[2016-05-24] MEDS ORDERED: POTASSIUM CHL 10% (20 MEQ/15ML) ORAL SOLN GT ONE (17:45)
[2016-05-24] MEDS: NOREPINEPHRINE BITARTRATE 250 ML IV SCH (17:45)
[2016-05-25] MEDS: SODIUM CHLORIDE 0.9% 1,000 ML IV SCH ×4 (01:03→21:23)
[2016-05-25 05:30] VITALS: BP 99/59
[2016-05-25] MEDS: cefTAZidime 1 GM in D5W 5% 50 ML IV SCH ×3 (06:00→23:30)
[2016-05-25] MEDS: NUTREN PO SCH ×4 (06:00→18:17)
[2016-05-25] MEDS: ALBUMIN 25% 50 ML IV SCH (06:00)
[2016-05-25] MEDS: MIDODRINE HCL 10 MG TAB PO SCH ×3 (06:01→23:40)
[2016-05-25 06:27] LABS: Basophils # (auto) 0 uL; Basophils % (auto) 0.3 % (0.0-2.0); DEFINITIVE VIEW TRANSMISSION; Eosinophils # (auto) 0 uL; Eosinophils % (auto) 0.2 % (0.0-7.0); Hematocrit 31.8 % (41.0-53.0); Hemoglobin 10.2 g/dL (13.5-17.5); Lymphocytes # (auto) 3.2 uL; Lymphocytes % (auto) 40.6 % (10.0-50.0); Mean Corpuscular Hemoglobin 25.9 pg (28.0-32.0); Mean Corpuscular Volume 80.9 fL (80.0-100.0); Mean Platelet Volume 7.4 fL (7.4-10.4); Monocytes # (auto) 0.4 uL; Monocytes % (auto) 4.5 % (0.0-12.0); Neutrophils # (auto) 4.3 uL; Neutrophils % (auto) 54.4 % (37.0-80.0); Platelet Count (auto) 339 10^3/uL (140-450); Red Cell Distribution Width 16.6 % (11.6-16.0); White Blood Cell 7.9 10^3/uL (4.4-10.8)
[2016-05-25 06:57] LABS: Potassium 3.1 mmol/L (3.5-5.1)
[2016-05-25 07:03] LABS: Albumin 3.8 g/dL (3.4-5.0); Calcium 8.6 mg/dL (8.5-10.1)
[2016-05-25 07:08] LABS: Bilirubin, Total 0.3 mg/dL (0.2-1.0); Total Protein 7.6 g/dL (6.4-8.2)
[2016-05-25] MEDS: IPRATROPIUM BROM 0.5 MG/2.5ML INH SOL NEB SCH ×5 (07:54→23:57)
[2016-05-25] MEDS: ACETYLCYSTEINE 20%(200MG/ML) SOL 4ML NEB SCH ×3 (07:54→23:58)
[2016-05-25] MEDS: BUDESONIDE (INHALATION) 0.5 MG/2 ML NEB NEB SCH ×2 (07:54→19:46)
[2016-05-25] MEDS: ALBUTEROL SULF 2.5 MG/0.5ML(0.5%) NEB SOLN NEB SCH ×5 (07:54→23:57)
[2016-05-25 09:00] VITALS: BP 99/65
[2016-05-25] MEDS: methylPREDNISolone SOD SUCC 40 MG/ML VL IV SCH (10:53)
[2016-05-25] MEDS: ENOXAPARIN SOD 40 MG/0.4 ML SYRINGE SC SCH (10:53)
[2016-05-25 13:00] VITALS: BP 80/47
[2016-05-25 16:56] VITALS: BP 90/52
[2016-05-25 20:00] VITALS: BP 93/56
[2016-05-25 21:45] VITALS: BP 93/56
[2016-05-26] MEDS: NUTREN PO SCH ×3 (00:15→12:00)
[2016-05-26] MEDS: SODIUM CHLORIDE 0.9% 1,000 ML IV SCH ×2 (04:01→10:18)
[2016-05-26 04:56] VITALS: BP 80/53
[2016-05-26] MEDS: MIDODRINE HCL 10 MG TAB PO SCH (05:15)
[2016-05-26] MEDS: cefTAZidime 1 GM in D5W 5% 50 ML IV SCH (05:16)
[2016-05-26] MEDS: ACETYLCYSTEINE 20%(200MG/ML) SOL 4ML NEB SCH (06:43)
[2016-05-26] MEDS: BUDESONIDE (INHALATION) 0.5 MG/2 ML NEB NEB SCH (06:43)
[2016-05-26] MEDS: ALBUTEROL SULF 2.5 MG/0.5ML(0.5%) NEB SOLN NEB SCH (06:43)
[2016-05-26] MEDS: IPRATROPIUM BROM 0.5 MG/2.5ML INH SOL NEB SCH (06:43)
[2016-05-26 09:00] VITALS: BP 98/63
[2016-05-26] MEDS: methylPREDNISolone SOD SUCC 40 MG/ML VL IV SCH (09:30)
[2016-05-26] MEDS: ENOXAPARIN SOD 40 MG/0.4 ML SYRINGE SC SCH (09:35)
[2016-05-26 11:34] VITALS: BP 98/63
[2016-05-26 13:00] VITALS: BP 83/50
== END 2016-05-26 13:45 | disposition home or self-care (01) | DRG 871 ==
LOC: EDBD 16:52 → EDUNIT# 16:52 → ER 16:58 → TELE 16:59 → ICU WEST 05-19 13:35 → TELE-WESTW 05-24 19:46
PROVIDERS: ADMIT Internal Medicine; ATTEND Internal Medicine
DX: A41.9 Sepsis, unspecified organism (principal); J18.9 Pneumonia, unspecified organism; G82.50 Quadriplegia, unspecified; J96.01 Acute respiratory failure with hypoxia; R65.21 Severe sepsis with septic shock; J84.10 Pulmonary fibrosis, unspecified; G89.29 Other chronic pain; M54.2 Cervicalgia; R00.0 Tachycardia, unspecified; Z82.49 Family history of ischemic heart disease and other diseases of the circulatory system; Z83.3 Family history of diabetes mellitus; Z93.1 Gastrostomy status; Z88.1 Allergy status to other antibiotic agents; Z79.899 Other long term (current) drug therapy
CPT/HCPCS: 36415; 36600; 71010; 80048; 80053; 82805; 83605; 83735; 83880; 84484; 85025; 87040; 87070; 87077; 87081; 87186; 87205; 87400; 87493; 92610; 93005; 93306; 94640; 96365; 96366; 96368; 96372; 96375; 99291; J1956; J2543; J3490; J7060

== ENCOUNTER 2020-07-15 00:07 | Inpatient (IN) | payer MEDICARE, MEDICAID ==
[2020-07-15] VITALS (52 sets, daily range): BP systolic 81–153; BP diastolic 51–105
[~2020-07-15] VITALS: Ht 170.2 cm; Wt 66.3 kg
[~2020-07-15 00:07] MED LIST changes: -FERR220E2 PO; +FERR220L PO
[2020-07-15 02:58] LABS: Urine Bacteria MANY /hpf (None Seen); Urine Blood TRACE /uL (Negative); Urine Mucus FEW (None Seen); Urine Specific Gravity 1.007 (1.001-1.035); Urine WBC 57 /hpf (0 - 3); Urine WBC Clumps PRESENT /hpf (None Seen)
[2020-07-15 03:51] LABS: Basophils # (auto) 0 10 ^3/uL (0-0.2); Basophils % (auto) 0.2 % (0.0-2.0); Eosinophils # (auto) 0 10 ^3/uL (0-0.8); Eosinophils % (auto) 0.4 % (0.0-7.0); Hematocrit 36.8 % (41.0-53.0); Hemoglobin 12.3 g/dL (13.5-17.5); Lymphocytes # (auto) 2.1 10 ^3/uL (0.4-5.4); Lymphocytes % (auto) 31.3 % (10.0-50.0); Mean Corpuscular Hemoglobin 25.4 pg (28.0-32.0); Mean Corpuscular Hgb Conc. 33.4 g/dL (32.0-36.0); Monocytes # (auto) 0.5 10 ^3/uL (0-1.3); Monocytes % (auto) 7.2 % (0.0-12.0); Neutrophils # (auto) 4.1 10 ^3/uL (1.6-8.6); Neutrophils % (auto) 60.9 % (37.0-80.0); Nucleated Red Blood Cells % 0.1 %; Platelet Count (auto) 193 10^3/uL (140-450); Red Blood Cells 4.83 10^6/uL (4.5-5.90); Red Cell Distribution Width 16.9 % (11.8-14.3); White Blood Cell 6.7 10^3/uL (4.4-10.8)
[2020-07-15 04:02] LABS: INR 0.99 (0.9-1.15)
[2020-07-15 04:08] LABS: Albumin 3.2 g/dL (3.4-5.0); BUN/Creatinine Ratio 25.7; Calcium 8.9 mg/dL (8.5-10.1); Magnesium 2.3 mg/dL (1.6-2.6); Potassium 3.3 mmol/L (3.5-5.1)
[2020-07-15 04:11] LABS: Bilirubin, Total 0.4 mg/dL (0.2-1.0); Total Protein 8.3 g/dL (6.4-8.2)
[2020-07-15] MEDS ORDERED: cefTRIAXone 1GM/50ML D5W 50 ML IV ONE (04:45)
[2020-07-15] MEDS ORDERED: KETOROLAC TROMETH 30 MG/ML 1ML VIAL IV ONE (05:30)
[2020-07-15] MEDS ORDERED: IOHEXOL 300 MG/ML 100ML BOTTLE IJ ONE (06:07)
[2020-07-15] MEDS ORDERED: SODIUM CHLORIDE 0.9% 2,000 ML IV ONE (07:15)
[2020-07-15] MEDS ORDERED: SODIUM CHLORIDE 0.9% 1,000 ML IV ONE (07:15)
[2020-07-15] MEDS ORDERED: SODIUM CHLORIDE 0.9% 1,000 ML IV SCH (07:15)
[2020-07-15] MEDS ORDERED: NOREPINEPHRINE 8 MG/250ML KIT 250 ML IV ONE (07:36)
[2020-07-15] MEDS: NOREPINEPHRINE 8 MG/250ML KIT 250 ML IV SCH (07:56)
[2020-07-15] MEDS ORDERED: MORPHINE SULF INJ 2 MG/ML SYRINGE 1ML IV PRN (08:45)
[2020-07-15] MEDS ORDERED: NITROGLYCERIN 0.4 MG SL TAB SL PRN (08:45)
[2020-07-15] MEDS ORDERED: PIPERACILLIN-TAZOB 3.375GM 100 ML IV ONE (09:15)
[2020-07-15] MEDS ORDERED: PROMETHAZINE HCL 25 MG/ML 1ML IV PRN (09:15)
[2020-07-15] MEDS ORDERED: ACETAMINOPHEN 500 MG TAB PO PRN (09:15)
[2020-07-15] MEDS ORDERED: SODIUM CHLORIDE 0.9% 2,050 ML IV ONE (09:15)
[2020-07-15] MEDS: MORPHINE SULF INJ 2 MG/ML SYRINGE 1ML IV PRN ×3 (10:40→22:32)
[2020-07-15 11:46] LABS: Lactic Acid w/Reflex 2.4 mmol/L (0.4-2.0)
[2020-07-15] MEDS: SODIUM CHLORIDE 0.9% 1,000 ML IV SCH ×3 (11:47→22:38)
[2020-07-15] MEDS: FAMOTIDINE (10MG/ML) 2ML VL IV SCH ×2 (11:48→21:42)
[2020-07-15] MEDS ORDERED: PIPERACILLIN-TAZOB 3.375GM 100 ML IV SCH (15:00)
[2020-07-15] MEDS: traMADol HCL 50 MG TAB PO PRN (18:19)
[2020-07-15] MEDS: CEFEPIME 1 GM in SODIUM CHL 0.9% 50 ML IV SCH (21:45)
[2020-07-16] VITALS (87 sets, daily range): BP systolic 69–138; BP diastolic 40–97
[2020-07-16 04:42] LABS: Basophils # (auto) 0 10 ^3/uL (0-0.2); Eosinophils # (auto) 0.2 10 ^3/uL (0-0.8); Monocytes # (auto) 0.4 10 ^3/uL (0-1.3); Neutrophils # (auto) 3.5 10 ^3/uL (1.6-8.6); Nucleated Red Blood Cells % 0.1 %
[2020-07-16 04:45] LABS: Basophils % (auto) 0.5 % (0.0-2.0); Eosinophils % (auto) 3.1 % (0.0-7.0); Hematocrit 32.3 % (41.0-53.0); Hemoglobin 10.8 g/dL (13.5-17.5); Lymphocytes # (auto) 1.4 10 ^3/uL (0.4-5.4); Mean Corpuscular Hemoglobin 25.6 pg (28.0-32.0); Mean Corpuscular Hgb Conc. 33.5 g/dL (32.0-36.0); Mean Corpuscular Volume 76.5 fL (80.0-100.0); Neutrophils % (auto) 63.4 % (37.0-80.0); Platelet Count (auto) 207 10^3/uL (140-450); Red Blood Cells 4.22 10^6/uL (4.5-5.90); White Blood Cell 5.5 10^3/uL (4.4-10.8)
[2020-07-16 05:05] LABS: Calcium 7.8 mg/dL (8.5-10.1)
[2020-07-16 05:10] LABS: Albumin 2.7 g/dL (3.4-5.0); Bilirubin, Total 0.4 mg/dL (0.2-1.0); Total Protein 7.4 g/dL (6.4-8.2)
[2020-07-16] MEDS: CEFEPIME 1 GM in SODIUM CHL 0.9% 50 ML IV SCH ×3 (05:37→21:38)
[2020-07-16] MEDS: SODIUM CHLORIDE 0.9% 1,000 ML IV SCH ×2 (06:44→15:50)
[2020-07-16] MEDS: FAMOTIDINE (10MG/ML) 2ML VL IV SCH ×2 (09:40→21:38)
[2020-07-16] MEDS: MORPHINE SULF INJ 2 MG/ML SYRINGE 1ML IV PRN (09:41)
[2020-07-16] MEDS: traMADol HCL 50 MG TAB PO PRN (15:52)
[2020-07-16] MEDS: LORazepam 2MG/ML-1ML VIAL IV PRN (15:52)
[2020-07-17] VITALS (68 sets, daily range): BP systolic 79–127; BP diastolic 47–89
[2020-07-17] MEDS: LORazepam 2MG/ML-1ML VIAL IV PRN (01:07)
[2020-07-17] MEDS: SODIUM CHLORIDE 0.9% 1,000 ML IV SCH ×2 (01:16→15:28)
[2020-07-17] MEDS: NOREPINEPHRINE 8 MG/250ML KIT 250 ML IV SCH ×2 (05:29→07:45)
[2020-07-17] MEDS: CEFEPIME 1 GM in SODIUM CHL 0.9% 50 ML IV SCH ×3 (05:45→22:04)
[2020-07-17] MEDS: FAMOTIDINE (10MG/ML) 2ML VL IV SCH ×2 (09:40→22:04)
[2020-07-17] MEDS ORDERED: ENOXAPARIN SOD 40 MG/0.4 ML SYRINGE SC ONE (11:15)
[2020-07-17] MEDS: traMADol HCL 50 MG TAB PO PRN (15:29)
[2020-07-18] VITALS (24 sets, daily range): BP systolic 84–119; BP diastolic 49–90
[2020-07-18] MEDS: SODIUM CHLORIDE 0.9% 1,000 ML IV SCH (05:31)
[2020-07-18] MEDS ORDERED: POLYETHYLENE GLYCOL 17 GM PWDR PO PRN (06:15)
[2020-07-18] MEDS: CEFEPIME 1 GM in SODIUM CHL 0.9% 50 ML IV SCH ×2 (06:30→14:19)
[2020-07-18] MEDS: FAMOTIDINE (10MG/ML) 2ML VL IV SCH (09:56)
[2020-07-18] MEDS ORDERED: ENOXAPARIN SOD 40 MG/0.4 ML SYRINGE SC SCH (10:00)
[2020-07-18] MEDS ORDERED: DOCUSATE SOD 100 MG CAP PO SCH (10:00)
[2020-07-18] MEDS ORDERED: MORPHINE SULF INJ 2 MG/ML SYRINGE 1ML IV PRN (16:00)
[2020-07-18] MEDS ORDERED: CEPH500T PO (16:11)
== END 2020-07-18 19:52 | disposition home or self-care (01) | DRG 871 ==
LOC: EDBD 00:07 → ER 00:13 → EDBD 00:13 → EDUNIT# 08:34 → ICU WEST 08:34 → TELE-CENTR 07-18 04:50
PROVIDERS: ADMIT Internal Medicine; ATTEND Internal Medicine Nephrology
PROC: 05H933Z Insertion of Infusion Device into Right Brachial Vein, Percutaneous Approach (ICD-10-PCS; principal; 2020-07-15)
PROC: B54MZZA Ultrasonography of Right Upper Extremity Veins, Guidance (ICD-10-PCS; 2020-07-15)
DX: A41.9 Sepsis, unspecified organism (principal); R65.21 Severe sepsis with septic shock; G82.50 Quadriplegia, unspecified; N39.0 Urinary tract infection, site not specified; E87.6 Hypokalemia; M54.2 Cervicalgia; K76.0 Fatty (change of) liver, not elsewhere classified; Z87.442 Personal history of urinary calculi; F12.90 Cannabis use, unspecified, uncomplicated; G89.29 Other chronic pain; I10 Essential (primary) hypertension; N31.9 Neuromuscular dysfunction of bladder, unspecified; R09.02 Hypoxemia; F41.9 Anxiety disorder, unspecified; M25.519 Pain in unspecified shoulder; R16.0 Hepatomegaly, not elsewhere classified; M79.605 Pain in left leg; Z20.822 Contact with and (suspected) exposure to COVID-19; Z82.49 Family history of ischemic heart disease and other diseases of the circulatory system; Z83.3 Family history of diabetes mellitus; Z93.1 Gastrostomy status; Z98.1 Arthrodesis status; Z88.1 Allergy status to other antibiotic agents; M19.90 Unspecified osteoarthritis, unspecified site
CPT/HCPCS: 36415; 71045; 74177; 76870; 80053; 81001; 83605; 83690; 83735; 84484; 85025; 85610; 87040; 87081; 87086; 87426; 93005; 93306; 93971; 96361; 96365; 96366; G0378; J0696; J1885; J2543; J3490